=== PATIENT | male | born 1995 | race African-American/Black ===

== ENCOUNTER 2017-11-30 17:55 | Emergency (ER) | payer SELFPAY ==
[~2017-11-30] VITALS: Ht 170.2 cm; Wt 98.0 kg
[~2017-11-30 17:55] MED LIST: Z.0.NO CURRENT MEDS
[2017-11-30 17:58] VITALS: BP 124/85; PULSE 102; RESP 20; TEMP 99.2; O2SAT 95
--- NOTE | 2017-11-30 19:48 | PD ---
HPI Chief Complaint: Cold / Flu Symptoms Time Seen by Provider: 19:35 Travel History International Travel<30 days: No Contact w/Intl Traveler<30days: No Traveled to known affect area: No History of Present Illness HPI 21-year-old male presents to emergency department with cough, headache, congestion, stomach, for pain and nausea with vomiting since last night. Patient states that he has had a nonproductive cough and a moderate frontal headache. In addition patient states she he has had right upper quadrant abdominal pain and nausea. Patient states he is unable to keep anything down since last night. Patient has also had a decreased appetite. Patient has tried Pepto-Bismol, Tylenol and NyQuil without relief of his symptoms. States his abdominal pain is sharp located in the upper abdomen region and nonradiating. Says he has a sharp pain lasting about 10 minutes every hour or so. Nothing seems to worsen or decrease his pain. States previously he had an upper respiratory infection and had abdominal pain with it but this is been many years. PFSH Past Medical History Blood Disorders: No Cardiovascular Problems: No Respiratory: Yes ("SINUS ISSUES") Immunizations Current: Yes Social History Alcohol Use: No Tobacco Use: No Substance Use: No Allergies-Medications (Allergen,Severity, Reaction): Coded Allergies: No Known Allergies (Verified Adverse Reaction, Unknown, 11/30/17) Reported Meds & Prescriptions Reported Meds & Active Scripts Active Naproxen EC (Naproxen) 375 Mg Tabdr 375 Mg PO BID Zofran Odt (Ondansetron Odt) 4 Mg Tab 4 Mg SL Q6HR PRN Tamiflu (Oseltamivir Phosphate) 75 Mg Cap 75 Mg PO BID 5 Days Reported No Current Meds (Miscellaneous Medication) Misc Review of Systems Except as stated in HPI: all other systems reviewed are Neg Physical Exam Narrative GENERAL: Well-nourished, well-developed patient. SKIN: Focused skin assessment warm/dry. HEAD: Normocephalic. EYES: No scleral icterus. No injection or drainage. NECK: Supple, trachea midline. No JVD or lymphadenopathy. CARDIOVASCULAR: Regular rate and rhythm without murmurs, gallops, or rubs. RESPIRATORY: Breath sounds equal bilaterally. No accessory muscle use. GASTROINTESTINAL: Abdomen voluntary guarding, right upper quadrant TTP, Positive Alfonso sign. no CVA tenderness. Otherwise abdomen is diffusely tender to light palpation. MUSCULOSKELETAL: No cyanosis, or edema. BACK: Nontender without obvious deformity. No CVA tenderness. Data Data Last Documented VS Vital Signs Date Time Temp Pulse Resp B/P (MAP) Pulse Ox O2 Delivery O2 Flow Rate FiO2 11/30/17 21:45 17 11/30/17 21:43 11/30/17 21:43 99.2 100 100 Room Air Orders Orders Complete Blood Count With Diff (11/30/17 20:06) Comprehensive Metabolic Panel (11/30/17 20:06) Lipase (11/30/17 20:06) Group A Rapid Strep Screen (11/30/17 20:06) Us Abdomen Gallbladder (11/30/17 20:06) Iv Access Insert/Monitor (11/30/17 20:06) Ecg Monitoring (11/30/17 20:06) Sodium Chlor 0.9% 1000 Ml Inj (Ns 1000 M (11/30/17 20:15) Ketorolac Inj (Toradol Inj) (11/30/17 20:15) Influenzae A/B Antigen (11/30/17 20:14) Strep Culture (Group A) (11/30/17 20:23) Ed Discharge Order (11/30/17 21:37) Labs Laboratory Tests Test 11/30/17 20:23 White Blood Count 7.5 TH/MM3 Red Blood Count 4.96 MIL/MM3 Hemoglobin 13.9 GM/DL Hematocrit 41.2 % Mean Corpuscular Volume 83.0 FL Mean Corpuscular Hemoglobin 28.0 PG Mean Corpuscular Hemoglobin Concent 33.7 % Red Cell Distribution Width 14.0 % Platelet Count 159 TH/MM3 Mean Platelet Volume 10.1 FL Neutrophils (%) (Auto) 84.5 % Lymphocytes (%) (Auto) 4.2 % Monocytes (%) (Auto) 10.9 % Eosinophils (%) (Auto) 0.1 % Basophils (%) (Auto) 0.3 % Neutrophils # (Auto) 6.3 TH/MM3 Lymphocytes # (Auto) 0.3 TH/MM3 Monocytes # (Auto) 0.8 TH/MM3 Eosinophils # (Auto) 0.0 TH/MM3 Basophils # (Auto) 0.0 TH/MM3 CBC Comment DIFF FINAL Differential Comment Blood Urea Nitrogen 15 MG/DL Creatinine 1.01 MG/DL Random Glucose 88 MG/DL Total Protein 8.1 GM/DL Albumin 4.0 GM/DL Calcium Level 8.8 MG/DL Alkaline Phosphatase 68 U/L Aspartate Amino Transf (AST/SGOT) 26 U/L Alanine Aminotransferase (ALT/SGPT) 40 U/L Total Bilirubin 0.6 MG/DL Sodium Level 134 MEQ/L Potassium Level 3.9 MEQ/L Chloride Level 103 MEQ/L Carbon Dioxide Level 20.2 MEQ/L Anion Gap 11 MEQ/L Estimat Glomerular Filtration Rate 111 ML/MIN Lipase 64 U/L [facility] Medical Decision Making Medical Screen Exam Complete: Yes Emergency Medical Condition: Yes Differential Diagnosis Cholecystitis, appendicitis, influenza, upper respiratory infection, gastritis, nausea, vomiting Narrative Course 21-year-old male presents to emergency department with cough, headache, congestion, stomach, for pain and nausea with vomiting since last night. Patient states that he has had a nonproductive cough and a moderate frontal headache. In addition patient states she he has had right upper quadrant abdominal pain and nausea. Patient states he is unable to keep anything down since last night. Patient has also had a decreased appetite. Patient has tried Pepto-Bismol, Tylenol and NyQuil without relief of his symptoms. States his abdominal pain is sharp located in the upper abdomen region and nonradiating. Says he has a sharp pain lasting about 10 minutes every hour or so. Nothing seems to worsen or decrease his pain. States previously he had an upper respiratory infection and had abdominal pain with it but this is been many years. Vital signs mildly tachycardic Physicla exam findings- voluntary guarding of abdomen, Pos alfonso's sign, no rebound tenderness. It is likely that pt has the flu or viral syndrome however, because of the specific abdominal pain he has, will transfer to a higher acuity room for further evaluation. Patient was moved to [place] pod for further treatment and evaluation. See Dr. Dumont's note regarding disposition. Scripts Naproxen DR (Naproxen EC) 375 Mg Tabdr 375 MG PO BID, #20 TAB 0 Refills Prov: Fernando Dumont MD 11/30/17 Ondansetron Odt (Zofran Odt) 4 Mg Tab 4 MG SL Q6HR Y for Nausea/Vomiting, #20 TAB 0 Refills Prov: Fernando Dumont MD 11/30/17 Oseltamivir (Tamiflu) 75 Mg Cap 75 MG PO BID for Mgmt Viral Infection for 5 Days, #10 CAP 0 Refills Prov: Fernando Dumont MD 11/30/17 Nikki Chavez Nov 30, 2017 19:47
[2017-11-30 20:03] VITALS: BP 132/78; PULSE 98; RESP 19; TEMP 99.1; O2SAT 100
[2017-11-30] MEDS ORDERED: SODIUM CHLOR 0.9% 1000 ML INJ 1,000 ML IV ONE (20:15)
[2017-11-30] MEDS ORDERED: KETOROLAC TROMETHAMINE 30 MG/ML (IVP) VIAL IV PUSH ONE (20:15)
[2017-11-30 20:52] LABS: AUTOMATED NEUTROPHIL # 6.3 TH/MM3 (1.8-7.7); BASOPHIL % 0.3 % (0.0-2.0); EOSINOPHIL % 0.1 % (0.0-4.0); HEMATOCRIT 41.2 % (39.0-51.0); HEMOGLOBIN 13.9 GM/DL (13.0-17.0); LYMPH % 4.2 % (9.0-44.0); LYMPHOCYTE # 0.3 TH/MM3 (1.0-4.8); MEAN CORPUSCULAR HGB CONC 33.7 % (32.0-36.0); MEAN PLATELET VOLUME 10.1 FL (7.0-11.0); MONO % 10.9 % (0.0-8.0); MONOCYTE # 0.8 TH/MM3 (0-0.9); NEUT % 84.5 % (16.0-70.0); PLATELET COUNT 159 TH/MM3 (150-450); RED BLOOD COUNT 4.96 MIL/MM3 (4.50-5.90); WHITE BLOOD COUNT 7.5 TH/MM3 (4.0-11.0)
--- NOTE | 2017-11-30 21:09 | PD ---
Physical Exam Narrative GENERAL: SKIN: Warm and dry. HEAD: Atraumatic. Normocephalic. EYES: Pupils equal and round. No scleral icterus. No injection or drainage. ENT: No nasal bleeding or discharge. Mucous membranes pink and moist.runny nose , erythematous oropharynx, (dry cough) NECK: Trachea midline. No JVD. CARDIOVASCULAR: Regular rate and rhythm. RESPIRATORY: No accessory muscle use. Clear to auscultation. Breath sounds equal bilaterally. GASTROINTESTINAL: Abdomen soft, non-tender, nondistended. minor ttp when pressing floating ribs (pain worse with coughing), no MUSCULOSKELETAL: Extremities without clubbing, cyanosis, or edema. No obvious deformities. NEUROLOGICAL: Awake and alert. No obvious cranial nerve deficits. Motor grossly within normal limits. Five out of 5 muscle strength in the arms and legs. Normal speech. PSYCHIATRIC: Appropriate mood and affect; insight and judgment normal. Data Data Last Documented VS Vital Signs Date Time Temp Pulse Resp B/P (MAP) Pulse Ox O2 Delivery O2 Flow Rate FiO2 11/30/17 20:03 99.1 98 19 132/78 (96) 100 Room Air Orders Orders Complete Blood Count With Diff (11/30/17 20:06) Comprehensive Metabolic Panel (11/30/17 20:06) Lipase (11/30/17 20:06) Group A Rapid Strep Screen (11/30/17 20:06) Us Abdomen Gallbladder (11/30/17 20:06) Iv Access Insert/Monitor (11/30/17 20:06) Ecg Monitoring (11/30/17 20:06) Sodium Chlor 0.9% 1000 Ml Inj (Ns 1000 M (11/30/17 20:15) Ketorolac Inj (Toradol Inj) (11/30/17 20:15) Influenzae A/B Antigen (11/30/17 20:14) Strep Culture (Group A) (11/30/17 20:23) Labs Laboratory Tests Test 11/30/17 20:23 White Blood Count 7.5 TH/MM3 Red Blood Count 4.96 MIL/MM3 Hemoglobin 13.9 GM/DL Hematocrit 41.2 % Mean Corpuscular Volume 83.0 FL Mean Corpuscular Hemoglobin 28.0 PG Mean Corpuscular Hemoglobin Concent 33.7 % Red Cell Distribution Width 14.0 % Platelet Count 159 TH/MM3 Mean Platelet Volume 10.1 FL Neutrophils (%) (Auto) 84.5 % Lymphocytes (%) (Auto) 4.2 % Monocytes (%) (Auto) 10.9 % Eosinophils (%) (Auto) 0.1 % Basophils (%) (Auto) 0.3 % Neutrophils # (Auto) 6.3 TH/MM3 Lymphocytes # (Auto) 0.3 TH/MM3 Monocytes # (Auto) 0.8 TH/MM3 Eosinophils # (Auto) 0.0 TH/MM3 Basophils # (Auto) 0.0 TH/MM3 CBC Comment DIFF FINAL Differential Comment Total Protein 8.1 GM/DL Alkaline Phosphatase 68 U/L Alanine Aminotransferase (ALT/SGPT) 40 U/L Total Bilirubin 0.6 MG/DL [facility] Medical Record Reviewed: Yes Supervised Visit with YAS: Yes Narrative Course ultrasound gb negative for gallstone/pericholecystic fluid....flu test positive....cbc, bmp and lipase wnl Diagnosis Primary Impression: flu Patient Instructions: General Instructions, Influenza (DC) Scripts Naproxen DR (Naproxen EC) 375 Mg Tabdr 375 MG PO BID, #20 TAB 0 Refills Prov: Fernando Dumont MD 11/30/17 Ondansetron Odt (Zofran Odt) 4 Mg Tab 4 MG SL Q6HR Y for Nausea/Vomiting, #20 TAB 0 Refills Prov: Fernando Dumont MD 11/30/17 Oseltamivir (Tamiflu) 75 Mg Cap 75 MG PO BID for Mgmt Viral Infection for 5 Days, #10 CAP 0 Refills Prov: Fernando Dumont MD 11/30/17 Disposition: 01 DISCHARGE HOME Condition: Stable Fernando Dumont MD Nov 30, 2017 21:09
[2017-11-30] MEDS ORDERED: OSEL75 PO (21:25)
[2017-11-30] MEDS ORDERED: NAPR375T4 PO (21:25)
[2017-11-30] MEDS ORDERED: ZOFR4TAB3 SL (21:25)
[2017-11-30 21:26] LABS: ALKALINE PHOSPHATASE 68 U/L (45-117); ALT (GPT) 40 U/L (12-78); TOTAL BILIRUBIN ADULT 0.6 MG/DL (0.2-1.0); TOTAL PROTEIN 8.1 GM/DL (6.4-8.2)
[2017-11-30 21:35] LABS: AST (GOT) 26 U/L (15-37); BICARBONATE 20.2 MEQ/L (21.0-32.0); BLOOD UREA NITROGEN 15 MG/DL (7-18); CALCIUM 8.8 MG/DL (8.5-10.1); CHLORIDE 103 MEQ/L (98-107); CREATININE 1.01 MG/DL (0.60-1.30); GLOMERULAR FILTRATION RATE 111 ML/MIN (>89); GLUCOSE,RANDOM 88 MG/DL (74-106); LIPASE 64 U/L (73-393); SODIUM (NA) 134 MEQ/L (136-145)
[2017-11-30 21:43] VITALS: BP 133/60; PULSE 100; RESP 18; TEMP 99.2; O2SAT 100
--- NOTE | 2017-11-30 21:43 | RADRPT ---
EXAM DATE/TIME: 11/30/2017 20:30 [place] COMPARISON: No previous studies available for comparison. INDICATIONS : Right upper quadrant pain. MEDICAL HISTORY : Sinus problems. Abdominal pain. Vomiting. Nausea. SURGICAL HISTORY : None. ENCOUNTER: Initial ACUITY: 2 days PAIN SCORE: 3/10 LOCATION: Right upper quadrant MEASUREMENTS: LIVER: 14.4 cm length COMMON DUCT: 3 mm RIGHT KIDNEY: 10.0 x 4.4 x 4.7 cm FINDINGS: LIVER: Normal echotexture without focal lesion or ductal dilatation. COMMON DUCT: No intraluminal mass or stone visualized. GALLBLADDER: Contains no stones, demonstrates no wall thickening or pericholecystic fluid. PANCREAS: The visualized portions are within normal limits. RIGHT KIDNEY: No evidence of hydronephrosis, stone, or mass. CONCLUSION: Right upper quadrant ultrasound within normal limits. Alfredo Hensley MD on November 30, 2017 at 21:39 Board Certified Radiologist. This report was verified electronically.
[2017-11-30 21:45] VITALS: RESP 17
== END 2017-11-30 21:50 | disposition home or self-care (01) ==
LOC: NEPD 17:55
DX: J11.1 Influenza due to unidentified influenza virus with other respiratory manifestations (principal); R51 Headache; R11.2 Nausea with vomiting, unspecified
CPT/HCPCS: 76705; 80053; 83690; 85025; 87081; 87804; 87880; 96361; 96374; 99285; J1885; J7030